=== PATIENT | female | born 1990 | race African-American/Black ===

== ENCOUNTER 2018-12-16 13:01 | Emergency (ER) | payer MEDICAID ==
[~2018-12-16] VITALS: Ht 160 cm; Wt 164.0 kg
[2018-12-16 15:37] LABS: BASOPHILS % 1.3 % (0.0-2.0); EOSINOPHILS % 3.3 % (0.0-5.0); HEMATOCRIT. 32.4 % (36.0-48.0); HEMOGLOBIN. 9.9 g/dL (12.0-16.0); LYMPHOCYTES % 24.5 % (20.0-50.0); MEAN CORPUSCULAR HEMOGLOBIN 23.3 pg (28.0-32.0); MEAN CORPUSCULAR VOLUME 76.1 fL (81.0-99.0); MONOCYTES % 8.8 % (2.0-8.0); NEUTROPHILS % 62.1 % (40.0-76.0); PLATELET 294 x1000/uL (130-400); RED BLOOD CELL COUNT 4.25 mill/uL (4.2-5.4); RED CELL DISTRIBUTION WIDTH 24.5 % (11.6-14.6)
[2018-12-16 15:42] LABS: CHLORIDE 111 mEq/L (98-107)
[2018-12-16 15:43] LABS: PROTHROMBIN TIME 10.7 sec (9.6-11.0)
[2018-12-16 16:07] LABS: PLATELET ESTIMATE NORMAL
[2018-12-16] MEDS ORDERED: CEFEPIME 1,000 MG in DEXTROSE 5% WATER 50 ML IV STA (17:43)
[2018-12-16] MEDS ORDERED: HYDROCODONE/ACETAMINOPHEN 10/325MG TABLET PO ONE (19:30)
[2018-12-16] MEDS ORDERED: MORPHINE SULFATE 15MG TABLET SR PO ONE (19:45)
[2018-12-16] MEDS ORDERED: FLUCONAZOLE 200MG/100ML PREMIX IV ONE (19:45)
[2018-12-16] MEDS ORDERED: VANCOMYCIN 1 G PREMIX 200 ML IV NR (20:00)
[2018-12-16] MEDS ORDERED: FLUCONAZOLE 200 MG/100ML BAG 100 ML IV NR (20:15)
[2018-12-16 20:45] VITALS: BP 160/82
== END 2018-12-16 21:50 | disposition left against medical advice (07) ==
LOC: ER 13:01 → CANRESERV 20:07 → ENRESERV 20:07 → ER 21:22 → ENRESERV 12-17 03:33 → CANRESERV 12-17 03:33 → CANBEDREQ 12-17 06:08
DX: M86.9 Osteomyelitis, unspecified (principal); D64.9 Anemia, unspecified; R70.0 Elevated erythrocyte sedimentation rate; E87.8 Other disorders of electrolyte and fluid balance, not elsewhere classified; E11.65 Type 2 diabetes mellitus with hyperglycemia; F31.9 Bipolar disorder, unspecified; Z88.0 Allergy status to penicillin; Z91.018 Allergy to other foods; Z88.6 Allergy status to analgesic agent
CPT/HCPCS: 36415; 73590; 73610; 73630; 80048; 85025; 85610; 85651; 86140; 87040; 96365; 96367; 99284; J0692; J1450; J7060; Z7610

== ENCOUNTER 2019-01-29 18:31 | Inpatient (IN) | payer MEDICAID ==
[~2019-01-29] VITALS: Ht 322.6 cm; Wt 160.1 kg
[2019-01-29] MEDS ORDERED: MORPHINE SULFATE 4 MG/ML CPJ (NOT FOR IM USE) IV STA (19:38)
[2019-01-29] MEDS ORDERED: SODIUM CHLORIDE 0.9% 1,000 ML IV ONE (19:38)
[2019-01-29] MEDS ORDERED: ONDANSETRON HCL 4MG/2ML INJ IV STA (19:38)
[2019-01-29] MEDS ORDERED: SODIUM CHLORIDE 0.9% 1000ML BAG (SEPSIS BOLUS) IV ONE (19:45)
[2019-01-29] MEDS ORDERED: LEVOFLOXACIN 500MG TABLET PO ONE (19:45)
[2019-01-29] MEDS ORDERED: METRONIDAZOLE 500MG TABLET PO ONE (19:45)
[2019-01-29 20:56] LABS: BASOPHILS % 0.6 % (0.0-2.0); EOSINOPHILS % 2.5 % (0.0-5.0); HEMATOCRIT. 35.9 % (36.0-48.0); HEMOGLOBIN. 11.3 g/dL (12.0-16.0); LYMPHOCYTES % 18.4 % (20.0-50.0); MEAN CORPUSCULAR HEMOGLOBIN 23.8 pg (28.0-32.0); MEAN CORPUSCULAR VOLUME 75.6 fL (81.0-99.0); MEAN PLATELET VOLUME 7.8 fl (7.4-10.4); MONOCYTES % 3.8 % (2.0-8.0); NEUTROPHILS % 74.7 % (40.0-76.0); PLATELET 391 x1000/uL (130-400); RED BLOOD CELL COUNT 4.75 mill/uL (4.2-5.4); RED CELL DISTRIBUTION WIDTH 20.3 % (11.6-14.6)
[2019-01-29 21:01] LABS: CHLORIDE 107 mEq/L (98-107)
[2019-01-29 21:10] LABS: CLARITY URINE CLEAR (CLEAR); COLOR URINE YELLOW (YELLOW); KETONES URINE NEGATIVE (NEGATIVE); LEUKOCYTE ESTERASE URINE NEGATIVE (NEGATIVE); NITRITE URINE NEGATIVE (NEGATIVE); OCCULT BLOOD URINE NEGATIVE (NEGATIVE); PH URINE 6.5 (4.5-8.0); PROTEIN URINE 4+ (NEGATIVE); SPECIFIC GRAVITY URINE 1.024 (1.005-1.030); UROBILINOGEN URINE 0.2 E.U./dL (0.2-1.0)
[2019-01-29 22:03] LABS: PROTHROMBIN TIME 10.2 sec (9.6-11.0)
[2019-01-29] MEDS ORDERED: VANCOMYCIN 1 G PREMIX 200 ML IV SCH (23:15)
[2019-01-29] MEDS ORDERED: ONDANSETRON HCL 4MG/2ML INJ IV PRN (23:15)
[2019-01-29] MEDS ORDERED: DOCUSATE SODIUM 100MG CAPSULE PO PRN (23:15)
[2019-01-29] MEDS ORDERED: ACETAMINOPHEN 325MG TABLET PO PRN (23:15)
[2019-01-29] MEDS ORDERED: CLONIDINE 0.1MG TABLET PO PRN (23:15)
[2019-01-29] MEDS ORDERED: ENOXAPARIN 40MG/0.4ML SYR SUBCUT SCH (23:15)
[2019-01-29] MEDS ORDERED: IPRATROPIUM/ALBUTEROL 0.5-3(2.5)MG/3ML NEB INH PRN (23:15)
[2019-01-29] MEDS ORDERED: HYDROCODONE/ACETAMINOPHEN 5/325MG TABLET PO PRN (23:15)
[2019-01-29] MEDS ORDERED: MAGNESIUM/ALUMINUM HYDROXIDE/SIMETHICONE 30ML UDC PO PRN (23:15)
[2019-01-30 00:30] VITALS: BP 147/85
[2019-01-30 01:00] VITALS: BP 147/85
[2019-01-30] MEDS ORDERED: VANCOMYCIN 1,750 MG in DEXT 5% WATER 500 ML IV SCH (02:00)
[2019-01-30] MEDS: SODIUM CHLORIDE 0.9% 1,000 ML IV SCH ×2 (02:02→12:54)
[2019-01-30 04:00] VITALS: BP 113/67
[2019-01-30 08:00] VITALS: BP 146/87
[2019-01-30] MEDS ORDERED: ADDERALL (08:23)
[2019-01-30] MEDS ORDERED: FERROUS SULFATE (08:24)
[2019-01-30] MEDS ORDERED: WELLBUTRIN (08:24)
[2019-01-30] MEDS ORDERED: [UNRECOGNIZED DRUG - OTHER] (08:25)
[2019-01-30] MEDS ORDERED: ENOXAPARIN 40MG/0.4ML SYR SUBCUT SCH (09:00)
[2019-01-30] MEDS: VANCOMYCIN 1500MG in DEXTROSE 5% WATER 250ML IV SCH ×2 (10:37→18:00)
[2019-01-30 11:26] LABS: *AMPHETAMINES SCREEN URINE NEGATIVE (NEGATIVE); *BARBITURATES SCREEN URINE NEGATIVE (NEGATIVE)
[2019-01-30 11:27] LABS: *COCAINE SCREEN URINE NEGATIVE (NEGATIVE)
[2019-01-30 11:28] LABS: *BENZODIAZEPINES SCREEN URINE NEGATIVE (NEGATIVE)
[2019-01-30 11:29] LABS: CANNABINOID URINE SCREEN NEGATIVE (NEGATIVE); METHADONE URINE SCREEN NEGATIVE (NEGATIVE); OPIATES URINE SCREEN NEGATIVE (NEGATIVE); PHENCYCLIDINE URINE SCREEN NEGATIVE (NEGATIVE)
[2019-01-30 12:00] VITALS: BP 135/84
[2019-01-30] MEDS ORDERED: MORPHINE SULFATE 2 MG/ML CPJ (NOT FOR IM USE) IV PRN (12:00)
[2019-01-30] MEDS ORDERED: OXYCODONE HCL/ACETAMINOPHEN 5/325MG TABLET PO PRN (12:00)
[2019-01-30 16:00] VITALS: BP 135/84
[2019-01-30] MEDS ORDERED: LEVOFLOXACIN 500MG PREMIX 100 ML IV SCH ×2 (21:00)
== END 2019-01-30 18:50 | disposition left against medical advice (07) | DRG 344 ==
LOC: ER 18:31 → 6EST 22:54 → EDBEDREQ 22:56 → EDBEDREQTM 22:56 → EDBEDREQSVC 22:56 → ENRESERV 23:18
PROVIDERS: ADMIT Internal Medicine; ATTEND Internal Medicine
DX: M00.9 Pyogenic arthritis, unspecified (principal); M86.18 Other acute osteomyelitis, other site; E66.01 Morbid (severe) obesity due to excess calories; E11.69 Type 2 diabetes mellitus with other specified complication; M86.60 Other chronic osteomyelitis, unspecified site; E87.5 Hyperkalemia; D72.829 Elevated white blood cell count, unspecified; D50.9 Iron deficiency anemia, unspecified; R80.9 Proteinuria, unspecified; F31.9 Bipolar disorder, unspecified; Z68.1 Body mass index [BMI] 19.9 or less, adult; Z79.01 Long term (current) use of anticoagulants; Z86.711 Personal history of pulmonary embolism; Z88.0 Allergy status to penicillin; Z88.8 Allergy status to other drugs, medicaments and biological substances; Z79.899 Other long term (current) drug therapy; Z53.21 Procedure and treatment not carried out due to patient leaving prior to being seen by health care provider
CPT/HCPCS: 36415; 71045; 73700; 80305; 83605; 84145; 84484; 85651; 93005; 99285; J1650; J1956; J2270; J2405; J3370; J7030; J7040; J7060

== ENCOUNTER 2019-02-13 14:48 | Inpatient (IN) | payer MEDICAID, OTHER ==
[~2019-02-13] VITALS: Ht 160 cm; Wt 158.8 kg
[~2019-02-13 14:48] MED LIST: ADDERALL; FERROUS SULFATE; WELLBUTRIN; [UNRECOGNIZED DRUG - OTHER]
[2019-02-13] MEDS ORDERED: ACETAMINOPHEN 325MG TABLET PO ONE (16:45)
[2019-02-13 17:11] LABS: *BARBITURATES SCREEN URINE NEGATIVE (NEGATIVE); *BENZODIAZEPINES SCREEN URINE NEGATIVE (NEGATIVE)
[2019-02-13 17:12] LABS: *COCAINE SCREEN URINE NEGATIVE (NEGATIVE); METHADONE URINE SCREEN NEGATIVE (NEGATIVE); OPIATES URINE SCREEN NEGATIVE (NEGATIVE); PHENCYCLIDINE URINE SCREEN NEGATIVE (NEGATIVE)
[2019-02-13 17:13] LABS: *AMPHETAMINES SCREEN URINE NEGATIVE (NEGATIVE)
[2019-02-13 17:17] LABS: CANNABINOID URINE SCREEN PRESUMTIVE POSITIVE (NEGATIVE)
[2019-02-13 17:31] LABS: BASOPHILS % 0.5 % (0.0-2.0); EOSINOPHILS % 2.1 % (0.0-5.0); HEMATOCRIT. 32.3 % (36.0-48.0); HEMOGLOBIN. 10.1 g/dL (12.0-16.0); LYMPHOCYTES % 14.9 % (20.0-50.0); MEAN CORPUSCULAR HEMOGLOBIN 23.7 pg (28.0-32.0); MEAN PLATELET VOLUME 7.5 fl (7.4-10.4); NEUTROPHILS % 77.5 % (40.0-76.0); PLATELET 348 x1000/uL (130-400); RED BLOOD CELL COUNT 4.25 mill/uL (4.2-5.4); RED CELL DISTRIBUTION WIDTH 19.3 % (11.6-14.6)
[2019-02-13 17:35] LABS: CHLORIDE 108 mEq/L (98-107)
[2019-02-13 17:36] LABS: PROTHROMBIN TIME 10.2 sec (9.6-11.0)
[2019-02-13 17:42] LABS: HCG SCREEN NEGATIVE
[2019-02-13] MEDS ORDERED: ACETAMINOPHEN 325MG TABLET PO PRN (19:15)
[2019-02-13] MEDS ORDERED: IPRATROPIUM/ALBUTEROL 0.5-3(2.5)MG/3ML NEB HHN PRN (19:15)
[2019-02-13] MEDS ORDERED: ONDANSETRON HCL 4MG/2ML INJ IV PRN (19:15)
[2019-02-13] MEDS ORDERED: ABIL10 PO (20:48)
[2019-02-13] MEDS ORDERED: BUPR75TA8 MT (20:53)
[2019-02-13] MEDS ORDERED: DEXT10TA4 MT (20:53)
[2019-02-13] MEDS ORDERED: LEVOFLOXACIN 750MG PREMIX 150 ML IV NR (22:00)
[2019-02-13] MEDS ORDERED: HYDROCODONE/ACETAMINOPHEN 5/325MG TABLET PO PRN (22:15)
[2019-02-13] MEDS: ENOXAPARIN 150MG/ML SYR SUBCUT SCH (23:44)
[2019-02-13] MEDS: MORPHINE SULFATE 2 MG/ML CPJ (NOT FOR IM USE) IV PRN (23:45)
[2019-02-14] VITALS (8 sets, daily range): BP systolic 108–150; BP diastolic 53–95
[2019-02-14] MEDS: MORPHINE SULFATE 2 MG/ML CPJ (NOT FOR IM USE) IV PRN ×5 (04:39→21:57)
[2019-02-14 06:46] LABS: BASOPHILS % 0.5 % (0.0-2.0); EOSINOPHILS % 2.7 % (0.0-5.0); HEMATOCRIT. 30.3 % (36.0-48.0); HEMOGLOBIN. 9.5 g/dL (12.0-16.0); LYMPHOCYTES % 18.1 % (20.0-50.0); MEAN CORPUSCULAR HEMOGLOBIN 23.6 pg (28.0-32.0); MEAN CORPUSCULAR VOLUME 75.1 fL (81.0-99.0); MEAN PLATELET VOLUME 7.5 fl (7.4-10.4); MONOCYTES % 5.2 % (2.0-8.0); NEUTROPHILS % 73.5 % (40.0-76.0); PLATELET 349 x1000/uL (130-400); RED BLOOD CELL COUNT 4.03 mill/uL (4.2-5.4); RED CELL DISTRIBUTION WIDTH 19.6 % (11.6-14.6)
[2019-02-14 06:48] LABS: CHLORIDE 108 mEq/L (98-107)
[2019-02-14] MEDS: ENOXAPARIN 150MG/ML SYR SUBCUT SCH ×2 (08:47→20:38)
[2019-02-14] MEDS ORDERED: HYDROCODONE/ACETAMINOPHEN 5/325MG TABLET PO PRN (12:45)
[2019-02-14] MEDS ORDERED: RIVAROXABAN 15 MG TABLET PO SCH (17:00)
[2019-02-14] MEDS ORDERED: LEVOFLOXACIN 750MG PREMIX 150 ML IV SCH (20:00)
[2019-02-15] VITALS: BP 109/63
[2019-02-15] MEDS: MORPHINE SULFATE 2 MG/ML CPJ (NOT FOR IM USE) IV PRN ×3 (02:31→10:54)
[2019-02-15 04:00] VITALS: BP 125/69
[2019-02-15] MEDS: ENOXAPARIN 150MG/ML SYR SUBCUT SCH (07:54)
[2019-02-15 08:00] VITALS: BP 108/52
[2019-02-15 08:58] LABS: BASOPHILS % 0.4 % (0.0-2.0); EOSINOPHILS % 3.4 % (0.0-5.0); HEMATOCRIT. 31.5 % (36.0-48.0); HEMOGLOBIN. 9.9 g/dL (12.0-16.0); LYMPHOCYTES % 16.2 % (20.0-50.0); MEAN CORPUSCULAR HEMOGLOBIN 23.6 pg (28.0-32.0); MEAN CORPUSCULAR VOLUME 75.1 fL (81.0-99.0); MEAN PLATELET VOLUME 7.5 fl (7.4-10.4); MONOCYTES % 5.6 % (2.0-8.0); NEUTROPHILS % 74.4 % (40.0-76.0); PLATELET 361 x1000/uL (130-400); RED CELL DISTRIBUTION WIDTH 19.4 % (11.6-14.6)
[2019-02-15 09:19] LABS: CHLORIDE 106 mEq/L (98-107)
[2019-02-15 11:58] VITALS: BP 101/46
== END 2019-02-15 14:53 | disposition left against medical advice (07) | DRG 383 ==
LOC: ER 14:48 → 6WST 18:42 → EDBEDREQ 18:47 → ENRESERV 19:24
PROVIDERS: ADMIT Internal Medicine; ATTEND Internal Medicine
DX: L08.89 Other specified local infections of the skin and subcutaneous tissue (principal); E43 Unspecified severe protein-calorie malnutrition; E87.8 Other disorders of electrolyte and fluid balance, not elsewhere classified; E66.01 Morbid (severe) obesity due to excess calories; E11.9 Type 2 diabetes mellitus without complications; D64.9 Anemia, unspecified; F12.90 Cannabis use, unspecified, uncomplicated; Z53.21 Procedure and treatment not carried out due to patient leaving prior to being seen by health care provider; F31.9 Bipolar disorder, unspecified; J44.9 Chronic obstructive pulmonary disease, unspecified; I10 Essential (primary) hypertension; Z86.711 Personal history of pulmonary embolism; Z91.19 Patient's noncompliance with other medical treatment and regimen; Z88.0 Allergy status to penicillin; Z88.9 Allergy status to unspecified drugs, medicaments and biological substances; Z86.718 Personal history of other venous thrombosis and embolism; Z71.3 Dietary counseling and surveillance; Z68.44 Body mass index [BMI] 60.0-69.9, adult
CPT/HCPCS: 36415; 71045; 73590; 80048; 80305; 83880; 84484; 84703; 85651; 86140; 93005; 93970; 96365; 99285; J1650; J1956; J2270; J2405

== ENCOUNTER 2019-03-13 09:58 | Inpatient (IN) | payer MEDICAID ==
[~2019-03-13] VITALS: Ht 160 cm; Wt 178.7 kg
[~2019-03-13 09:58] MED LIST changes: +ABIL10 PO; +BUPR75TA8 MT; +DEXT10TA4 MT
[2019-03-13 11:10] LABS: CLARITY URINE CLEAR (CLEAR); COLOR URINE YELLOW (YELLOW); KETONES URINE NEGATIVE (NEGATIVE); LEUKOCYTE ESTERASE URINE NEGATIVE (NEGATIVE); NITRITE URINE NEGATIVE (NEGATIVE); OCCULT BLOOD URINE 3+ (NEGATIVE); PROTEIN URINE 2+ (NEGATIVE); SPECIFIC GRAVITY URINE 1.016 (1.005-1.030); UROBILINOGEN URINE 0.2 E.U./dL (0.2-1.0)
[2019-03-13] MEDS ORDERED: MORPHINE SULFATE 4 MG/ML CPJ (NOT FOR IM USE) IV STA ×2 (11:19→15:25)
[2019-03-13] MEDS ORDERED: ONDANSETRON HCL 4MG/2ML INJ IV STA ×2 (11:19→15:25)
[2019-03-13 12:30] LABS: BASOPHILS % 0.3 % (0.0-2.0); EOSINOPHILS % 2.3 % (0.0-5.0); HEMATOCRIT. 31.5 % (36.0-48.0); HEMOGLOBIN. 9.7 g/dL (12.0-16.0); LYMPHOCYTES % 15.9 % (20.0-50.0); MEAN CORPUSCULAR VOLUME 74.3 fL (81.0-99.0); MEAN PLATELET VOLUME 7.5 fl (7.4-10.4); MONOCYTES % 5.7 % (2.0-8.0); NEUTROPHILS % 75.8 % (40.0-76.0); PLATELET 406 x1000/uL (130-400); RED BLOOD CELL COUNT 4.23 mill/uL (4.2-5.4); RED CELL DISTRIBUTION WIDTH 19.5 % (11.6-14.6)
[2019-03-13 12:38] LABS: CHLORIDE 110 mEq/L (98-107)
[2019-03-13 12:40] LABS: PARTIAL THROMBOPLASTIN TIME 28.7 sec (23.4-31.0); PROTHROMBIN TIME 10.2 sec (9.6-11.0)
[2019-03-13 12:47] LABS: HCG SCREEN NEGATIVE
[2019-03-13] MEDS ORDERED: IOHEXOL-350 100 ML BOTTLE ONE (14:49)
[2019-03-13] MEDS ORDERED: PANTOPRAZOLE SODIUM 40 MG/VIAL IV ONE (15:15)
[2019-03-13] MEDS ORDERED: CLONIDINE 0.1MG TABLET PO PRN (17:30)
[2019-03-13] MEDS ORDERED: IPRATROPIUM/ALBUTEROL 0.5-3(2.5)MG/3ML NEB INH PRN (17:30)
[2019-03-13] MEDS ORDERED: LORAZEPAM 2MG/ML CPJ IV PRN (17:30)
[2019-03-13] MEDS ORDERED: GUAIFENESIN 200MG/10ML SUGAR FREE UDC PO PRN (17:30)
[2019-03-13] MEDS ORDERED: ACETAMINOPHEN 325MG TABLET PO PRN (17:30)
[2019-03-13] MEDS ORDERED: MAGNESIUM/ALUMINUM HYDROXIDE/SIMETHICONE 30ML UDC PO PRN (17:30)
[2019-03-13] MEDS ORDERED: DOCUSATE SODIUM 100MG CAPSULE PO PRN (17:30)
[2019-03-13] MEDS ORDERED: ONDANSETRON HCL 4MG/2ML INJ IV PRN (17:30)
[2019-03-13 17:33] VITALS: BP 128/70
[2019-03-13] MEDS ORDERED: OXYC-105 PO (18:07)
[2019-03-13] MEDS ORDERED: FERR236T3 MT (18:25)
[2019-03-13 20:00] VITALS: BP 122/76
[2019-03-13] MEDS: MORPHINE SULFATE 2 MG/ML CPJ (NOT FOR IM USE) IV PRN (20:16)
[2019-03-13 20:45] LABS: CHLORIDE 109 mEq/L (98-107)
[2019-03-13] MEDS ORDERED: NA PHOS,M-B/NA PHOS,DI-BA ENEMA 118ML PR PRN (21:00)
[2019-03-13] MEDS ORDERED: DEXTROSE 50% WATER 50ML SYRINGE IV PRN (22:00)
[2019-03-14] VITALS: BP 127/71
[2019-03-14] MEDS: MORPHINE SULFATE 2 MG/ML CPJ (NOT FOR IM USE) IV PRN ×5 (00:36→18:23)
[2019-03-14 04:00] VITALS: BP 130/81
[2019-03-14] MEDS: INSULIN LISPRO 100 UNITS/ML SUBCUT SCH ×3 (06:24→17:15)
[2019-03-14] MEDS: BLOOD SUGAR DIAGNOSTIC STRIP TEST SCH ×3 (06:24→16:45)
[2019-03-14 07:25] LABS: BASOPHILS % 0.4 % (0.0-2.0); EOSINOPHILS % 2.8 % (0.0-5.0); HEMATOCRIT. 27.4 % (36.0-48.0); HEMOGLOBIN. 8.4 g/dL (12.0-16.0); LYMPHOCYTES % 14.9 % (20.0-50.0); MEAN CORPUSCULAR HEMOGLOBIN 22.8 pg (28.0-32.0); MEAN PLATELET VOLUME 7.3 fl (7.4-10.4); MONOCYTES % 7.2 % (2.0-8.0); NEUTROPHILS % 74.7 % (40.0-76.0); PLATELET 323 x1000/uL (130-400); RED CELL DISTRIBUTION WIDTH 19.4 % (11.6-14.6)
[2019-03-14 07:36] LABS: CHLORIDE 110 mEq/L (98-107)
[2019-03-14 07:44] LABS: LDL CHOLESTEROL 92 mg/dL (5-100)
[2019-03-14 07:45] LABS: HDL CHOLESTEROL 31 mg/dL (40-59)
[2019-03-14 07:46] LABS: T4 FREE 2.26 ng/dL (0.76-1.46)
[2019-03-14 08:00] VITALS: BP 141/94
[2019-03-14 12:00] VITALS: BP 119/78
[2019-03-14 16:33] LABS: CREATINE KINASE 23 IU/L (26-192)
[2019-03-14 16:34] LABS: CREATINE KINASE MB FRACTION < 1.0 ng/mL (0.5-3.6)
[2019-03-14 16:57] VITALS: BP 123/72
[2019-03-14 18:23] VITALS: BP 123/72
== END 2019-03-14 20:11 | disposition left against medical advice (07) | DRG 203 ==
LOC: ER 09:58 → 5WST 14:44 → EDBEDREQ 14:47 → EDBEDREQTM 14:47 → ENRESERV 15:32
PROVIDERS: ADMIT Internal Medicine; ATTEND Internal Medicine
DX: M94.0 Chondrocostal junction syndrome [Tietze] (principal); E11.69 Type 2 diabetes mellitus with other specified complication; E66.01 Morbid (severe) obesity due to excess calories; K92.1 Melena; D64.9 Anemia, unspecified; F31.9 Bipolar disorder, unspecified; J44.9 Chronic obstructive pulmonary disease, unspecified; K64.9 Unspecified hemorrhoids; I10 Essential (primary) hypertension; Z79.01 Long term (current) use of anticoagulants; Z68.44 Body mass index [BMI] 60.0-69.9, adult; Z86.711 Personal history of pulmonary embolism; Z88.8 Allergy status to other drugs, medicaments and biological substances; Z88.0 Allergy status to penicillin; Z88.1 Allergy status to other antibiotic agents; Z88.5 Allergy status to narcotic agent; Z79.899 Other long term (current) drug therapy
CPT/HCPCS: 36415; 71045; 71275; 80048; 80061; 80202; 82550; 82553; 82962; 83036; 83880; 84439; 84443; 84484; 84703; 85379; 86850; 86900; 93005; 96374; 99285; C9113; J2270; J2405; Q9967

== ENCOUNTER 2019-03-18 23:40 | Emergency (ER) | payer MEDICAID ==
[~2019-03-18] VITALS: Ht 167.6 cm; Wt 166.0 kg
[~2019-03-18 23:40] MED LIST changes: -ADDERALL; +FERR236T3 MT; -FERROUS SULFATE; +OXYC-105 PO; -WELLBUTRIN; -[UNRECOGNIZED DRUG - OTHER]
[2019-03-19] MEDS ORDERED: MORPHINE SULFATE 4 MG/ML CPJ (NOT FOR IM USE) IV STA (01:39)
[2019-03-19] MEDS ORDERED: ONDANSETRON HCL 4MG/2ML INJ IV STA (01:39)
[2019-03-19 02:57] LABS: BASOPHILS % 1.2 % (0.0-2.0); EOSINOPHILS % 2.4 % (0.0-5.0); HEMATOCRIT. 28.1 % (36.0-48.0); HEMOGLOBIN. 8.7 g/dL (12.0-16.0); LYMPHOCYTES % 18.9 % (20.0-50.0); MEAN CORPUSCULAR HEMOGLOBIN 22.6 pg (28.0-32.0); MEAN CORPUSCULAR VOLUME 73.4 fL (81.0-99.0); MEAN PLATELET VOLUME 7.4 fl (7.4-10.4); MONOCYTES % 6.1 % (2.0-8.0); NEUTROPHILS % 71.4 % (40.0-76.0); PLATELET 429 x1000/uL (130-400); RED BLOOD CELL COUNT 3.83 mill/uL (4.2-5.4); RED CELL DISTRIBUTION WIDTH 19.2 % (11.6-14.6)
[2019-03-19 03:05] LABS: INR 1.3; PARTIAL THROMBOPLASTIN TIME 40.4 sec (23.4-31.0); PROTHROMBIN TIME 12.9 sec (9.6-11.0)
[2019-03-19 03:10] LABS: HCG SCREEN NEGATIVE
[2019-03-19 03:35] LABS: CHLORIDE 107 mEq/L (98-107)
[2019-03-19] MEDS ORDERED: IOHEXOL-350 100 ML BOTTLE ONE (05:12)
[2019-03-19 07:02] VITALS: BP 121/76
== END 2019-03-19 07:04 | disposition home or self-care (01) ==
LOC: ER 23:51
DX: R07.89 Other chest pain (principal); I82.401 Acute embolism and thrombosis of unspecified deep veins of right lower extremity; D64.9 Anemia, unspecified; J44.9 Chronic obstructive pulmonary disease, unspecified; Z88.0 Allergy status to penicillin; Z79.899 Other long term (current) drug therapy; Z88.5 Allergy status to narcotic agent; Z88.6 Allergy status to analgesic agent
CPT/HCPCS: 36415; 71045; 71275; 80053; 83605; 83880; 84484; 84703; 85025; 85610; 85730; 93005; 96374; 96375; 99284; J2270; J2405; Q9967; Z7610

== ENCOUNTER 2019-04-16 08:21 | Inpatient (IN) | payer MEDICAID ==
[~2019-04-16] VITALS: Ht 162.6 cm; Wt 172.4 kg
[2019-04-16] MEDS ORDERED: ONDANSETRON HCL 4MG/2ML INJ IV ONE (09:30)
[2019-04-16] MEDS ORDERED: MORPHINE SULFATE 4 MG/ML CPJ (NOT FOR IM USE) IV ONE (09:30)
[2019-04-16 09:49] LABS: BASOPHILS % 0.4 % (0.0-2.0); EOSINOPHILS % 2.3 % (0.0-5.0); HEMATOCRIT. 29.1 % (36.0-48.0); HEMOGLOBIN. 9.2 g/dL (12.0-16.0); LYMPHOCYTES % 13.9 % (20.0-50.0); MEAN CORPUSCULAR HEMOGLOBIN 22.4 pg (28.0-32.0); MEAN CORPUSCULAR VOLUME 71.1 fL (81.0-99.0); MEAN PLATELET VOLUME 7.3 fl (7.4-10.4); MONOCYTES % 5.8 % (2.0-8.0); NEUTROPHILS % 77.6 % (40.0-76.0); PLATELET 400 x1000/uL (130-400); RED BLOOD CELL COUNT 4.09 mill/uL (4.2-5.4); RED CELL DISTRIBUTION WIDTH 19.6 % (11.6-14.6)
[2019-04-16 09:52] LABS: CLARITY URINE CLEAR (CLEAR); COLOR URINE YELLOW (YELLOW); KETONES URINE NEGATIVE (NEGATIVE); LEUKOCYTE ESTERASE URINE NEGATIVE (NEGATIVE); NITRITE URINE NEGATIVE (NEGATIVE); OCCULT BLOOD URINE NEGATIVE (NEGATIVE); PROTEIN URINE 2+ (NEGATIVE); UROBILINOGEN URINE 0.2 E.U./dL (0.2-1.0)
[2019-04-16 09:54] LABS: CHLORIDE 107 mEq/L (98-107); PROTHROMBIN TIME 10.1 sec (9.6-11.0)
[2019-04-16] MEDS ORDERED: MORPHINE SULFATE 2 MG/ML CPJ (NOT FOR IM USE) IV ONE (11:15)
[2019-04-16] MEDS ORDERED: VANCOMYCIN 1 G PREMIX 200 ML IV ONE (12:30)
[2019-04-16] MEDS ORDERED: MEROPENEM 1,000 MG in SODIUM CHLORIDE 0.9% 100 ML IV ONE (12:30)
[2019-04-16] MEDS ORDERED: DIPHENHYDRAMINE 50MG/ML VIAL IV ONE (13:00)
[2019-04-16] MEDS ORDERED: ONDANSETRON HCL 4MG/2ML INJ IV PRN (13:15)
[2019-04-16] MEDS ORDERED: ACETAMINOPHEN 325MG TABLET PO PRN (13:15)
[2019-04-16 15:34] VITALS: BP 100/75
[2019-04-16 16:00] VITALS: BP 100/75
[2019-04-16] MEDS: ENOXAPARIN 40MG/0.4ML SYR SUBCUT SCH (17:21)
[2019-04-16] MEDS: MORPHINE SULFATE 2 MG/ML CPJ (NOT FOR IM USE) IV PRN (19:30)
[2019-04-16 20:00] VITALS: BP 114/50
[2019-04-17] VITALS: BP 115/52
[2019-04-17] MEDS: MORPHINE SULFATE 2 MG/ML CPJ (NOT FOR IM USE) IV PRN ×4 (00:37→13:43)
[2019-04-17 04:00] VITALS: BP 127/57
[2019-04-17] MEDS: ENOXAPARIN 40MG/0.4ML SYR SUBCUT SCH (05:10)
[2019-04-17 05:48] LABS: HEMOGLOBIN. 8.6 g/dL (12.0-16.0); MEAN CORPUSCULAR HEMOGLOBIN 22.5 pg (28.0-32.0); MEAN CORPUSCULAR VOLUME 70.8 fL (81.0-99.0); RED BLOOD CELL COUNT 3.82 mill/uL (4.2-5.4); RED CELL DISTRIBUTION WIDTH 19.3 % (11.6-14.6)
[2019-04-17 07:37] LABS: CHLORIDE 110 mEq/L (98-107)
[2019-04-17 08:00] VITALS: BP 129/63
[2019-04-17 08:12] LABS: PLATELET ESTIMATE NORMAL
[2019-04-17 08:13] LABS: MEAN PLATELET VOLUME 8.1 fl (7.4-10.4); PLATELET 311 x1000/uL (130-400)
[2019-04-17 12:00] VITALS: BP 114/56
[2019-04-17 15:58] VITALS: BP 114/56
== END 2019-04-17 17:00 | disposition home or self-care (01) | DRG 383 ==
LOC: ER 08:21 → 6EST 12:31 → ENRESERV 12:47
PROVIDERS: ADMIT Internal Medicine; ATTEND Internal Medicine
DX: L03.115 Cellulitis of right lower limb (principal); E44.1 Mild protein-calorie malnutrition; E66.01 Morbid (severe) obesity due to excess calories; M86.8X6 Other osteomyelitis, lower leg; Z68.44 Body mass index [BMI] 60.0-69.9, adult; J44.9 Chronic obstructive pulmonary disease, unspecified; D64.9 Anemia, unspecified; Z86.711 Personal history of pulmonary embolism; Z86.718 Personal history of other venous thrombosis and embolism; Z79.899 Other long term (current) drug therapy; Z88.1 Allergy status to other antibiotic agents; Z88.0 Allergy status to penicillin; Z88.8 Allergy status to other drugs, medicaments and biological substances
CPT/HCPCS: 36415; 73590; 73700; 80048; 81003; 83605; 84145; 87070; 87077; 93971; 96374; 96375; 99285; J1200; J1650; J2185; J2270; J2405; J3370; J7050